=== PATIENT | male | born 1970 | race American Indian/Alaskan Native ===

== ENCOUNTER 2019-04-04 11:21 | Emergency (ER) | payer OTHER ==
[2019-04-04] MEDS ORDERED: NACL 0.9% 1000 ML 1,000 ML IV ONE (11:57)
[2019-04-04] MEDS ORDERED: SOLU-Medrol IV ONE (11:57)
[2019-04-04] MEDS ORDERED: BENADRYL IV ONE (11:57)
--- NOTE | 2019-04-04 12:05 | Emergency Department Report ---
- General Chief Complaint: Allergic Reaction Stated Complaint: POSS ALLERGIC REACTION Time Seen by Provider: 04/04/19 11:57 Source: patient, EMS Mode of arrival: Ambulatory Limitations: No Limitations - History of Present Illness Initial Comments: 48-year-old male presents to ED with swelling uvula. 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 Patient states he awoke this morning with a sore scratchy throat. Denies fever or cough. States he noticed that his uvula began to swell at approximately 8:30 AM. Patient reports he attempted to eat [employer] but was unable to swallow due to the swelling. Patient was given Epi 0.3 mg and transported to the ED. Patient denies difficulty breathing, only difficulty swallowing. Denies rash. MD Complaint: sore throat -: This morning Severity: moderate Consistency: constant Improves With: nothing Worsens With: nothing Associated Symptoms: sore throat. denies: fever, chills, rhinorrhea, nasal congestion, cough, rash Treatments Prior to Arrival: other (SC Epinephrine) - Related Data Previous Rx's Medication Instructions Recorded Last Taken Type predniSONE [Deltasone] 50 mg PO QDAY #5 tab 04/04/19 Unknown Rx Allergies Allergy/AdvReac Type Severity Reaction Status Date / Time No Known Allergies Allergy Unverified 04/04/19 11:38 ED Review of Systems ROS: Stated complaint: POSS ALLERGIC REACTION Other details as noted in HPI Comment: All other systems reviewed and negative Constitutional: denies: chills, fever ENT: throat pain. denies: congestion Respiratory: denies: cough ED Past Medical Hx - Past Medical History Previous Medical History?: Yes Hx Hypertension: Yes - Surgical History Past Surgical History?: Yes Additional Surgical History: B/L knee - Social History Smoking Status: Never Smoker Substance Use Type: None - Medications Home Medications: Home Medications Medication Instructions Recorded Confirmed Last Taken Type predniSONE [Deltasone] 50 mg PO QDAY #5 tab 04/04/19 Unknown Rx ED Physical Exam - General Limitations: No Limitations General appearance: alert, in no apparent distress - Head Head exam: Present: atraumatic, normocephalic - Eye Eye exam: Present: normal appearance - ENT ENT exam: Present: other (moderate swelling present to uvula, uvula is midline) - Neck Neck exam: Present: normal inspection - Respiratory Respiratory exam: Present: normal lung sounds bilaterally. Absent: respiratory distress, wheezes, stridor - Cardiovascular Cardiovascular Exam: Present: regular rate, normal rhythm - GI/Abdominal GI/Abdominal exam: Present: soft. Absent: distended, tenderness - Extremities Exam Extremities exam: Present: normal inspection - Neurological Exam Neurological exam: Present: alert, oriented X3 - Psychiatric Psychiatric exam: Present: normal affect, normal mood - Skin Skin exam: Present: warm, dry, intact, normal color. Absent: rash ED Course Vital Signs 04/04/19 04/04/19 04/04/19 11:31 13:32 14:44 Temperature 98.0 F Pulse Rate 85 83 90 Respiratory 16 20 18 Rate Blood Pressure 145/93 Blood Pressure 149/84 147/86 [Right] O2 Sat by Pulse 96 95 96 Oximetry - Reevaluation(s) Reevaluation #1: 04/04/19 12:59 Pt re-evaluated. Swelling much improved. Pt reports he ate chocolate chip cookies from EMS room without difficulty. Reevaluation #2: 04/04/19 14:53 Pt remains stable. States feels as if uvular swelling has resolved completely. Exam is normal. Will discharge at this time w/ rx for prednisone. Outpt f/u advised. Return precautions given. ED Medical Decision Making - Medical Decision Making Pt observed in ED x 3 hrs. Resolution of uvular edema. Pt tolerating PO well, no airway compromise. Discharged home w/ prednisone. - Differential Diagnosis uvulitis, allergic reaction Critical care attestation.: If time is entered above; I have spent that time in minutes in the direct care of this critically ill patient, excluding procedure time. ED Disposition Clinical Impression: Uvulitis Disposition: - TO HOME OR SELFCARE Is pt being admited?: No Condition: Stable Instructions: Uvulitis (ED) Prescriptions: predniSONE [Deltasone] 50 mg PO QDAY #5 tab Referrals: PRIMARY CARE, [Referring] - 3-5 Days Forms: Work/School Release Form(ED) Time of Disposition: 14:27
[2019-04-04 14:45] VITALS: BP 147/86
== END 2019-04-04 14:50 | disposition home or self-care (01) ==
LOC: ED 11:21
DX: K12.2 Cellulitis and abscess of mouth (principal); I10 Essential (primary) hypertension
CPT/HCPCS: 96374; 96375; 99283; J1200; J2930; J7030